=== PATIENT | male | born 1935 | race Two or more races ===

== ENCOUNTER 2018-07-16 06:32 | Outpatient (CLI) | payer OTHER ==
[~2018-07-16 06:32] MED LIST: CARVEDILOL PO; COUMADIN2.5 MG PO; LANOXIN0.25 MG PO; NABUMETONE500 MG PO; PERCOCET 5/3251 TAB PO; [UNRECOGNIZED DRUG - OTHER] PO
== END 2018-07-16 06:53 | disposition home or self-care (01) ==
LOC: LAB 06:32
DX: D47.2 Monoclonal gammopathy (principal); I10 Essential (primary) hypertension; I48.2 Chronic atrial fibrillation; Z79.01 Long term (current) use of anticoagulants; I50.89 Other heart failure; D50.8 Other iron deficiency anemias; D51.8 Other vitamin B12 deficiency anemias; D51.1 Vitamin B12 deficiency anemia due to selective vitamin B12 malabsorption with proteinuria; D51.0 Vitamin B12 deficiency anemia due to intrinsic factor deficiency; D55.0 Anemia due to glucose-6-phosphate dehydrogenase [G6PD] deficiency; E03.8 Other specified hypothyroidism; E06.3 Autoimmune thyroiditis; R97.0 Elevated carcinoembryonic antigen [CEA]; R97.20 Elevated prostate specific antigen [PSA]

== ENCOUNTER 2021-08-16 07:15 | Outpatient (CLI) | payer OTHER | END 2021-08-16 07:16 | disposition home or self-care (01) | LOC: NUCLEAR 07:15 | PROVIDERS: ATTEND Internal Medicine Cardiovascular Disease | DX: I25.10 Atherosclerotic heart disease of native coronary artery without angina pectoris (principal) | CPT/HCPCS: 78452; A9500; Q9965 ==